=== PATIENT | male | born 1990 | race African-American/Black ===

== ENCOUNTER 2018-05-17 18:46 | Emergency (ER) | payer OTHER ==
[~2018-05-17] VITALS: Ht 185.4 cm; Wt 113.9 kg
[2018-05-17 19:00] VITALS: BP 147/188
[2018-05-17 19:17] LABS: BILIRUBIN,URINE NEGATIVE (NEG); CLARITY,URINE CLEAR; COLOR,URINE YELLOW; NITRITE,URINE NEGATIVE (NEG); PROTEIN,URINE NEGATIVE (NEG-TRACE)
[2018-05-17 19:22] LABS: BACTERIA,URINE 0 /HPF (0-FEW); SQUAMOUS EPITHELIAL CELL,UR OCC /LPF; WBC,URINE OCC /HPF (0-4)
[2018-05-17] MEDS ORDERED: cefTRIAXone IM 250 MG VIAL IM ONE (19:45)
[2018-05-17] MEDS ORDERED: AZITHROMYCIN 250 MG TABLET. PO ONE (19:45)
[2018-05-17] MEDS ORDERED: KETOROLAC 30 MG/ML VIAL. IM ONE (19:45)
--- NOTE | 2018-05-17 19:47 | PHYS DOC ---
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 He describes the pain as constant, sharp, localized, worse with movement. Patient denies dysuria, hematuria, radiation to the back. Patient reports the pain started today after intercourse with his partner. Reports was having "rough sex" at that time. He reports using protection and his partner is not experiencing any symptoms. He reports that he has one female partner. He has not noticed any redness or swelling. He has not taken anything for the pain. He reports the pain as a 9 out of 10. Review of Systems Review of Systems Constitutional: Denies fever or chills [] Eyes: Denies change in visual acuity, redness, or eye pain [] HENT: Denies nasal congestion or sore throat [] Respiratory: Denies cough or shortness of breath [] Cardiovascular: Denies chest pain or palpitations [] GI: Denies abdominal pain, nausea, vomiting, or diarrhea [] : Denies dysuria, hematuria, reports left-sided testicular pain [] Musculoskeletal: Denies back pain or joint pain [] Integument: Denies rash or skin lesions [] Neurologic: Denies headache, focal weakness or sensory changes [] Complete systems were reviewed and found to be within normal limits, except as documented in this note. Current Medications Current Medications Current Medications Medications (Trade) Dose Ordered Sig/[facility] Start Time Stop Time Status Last Admin Dose Admin Azithromycin (Zithromax) 1,000 mg 1X ONCE 05/17/18 19:45 05/17/18 19:46 DC 05/17/18 20:13 1,000 MG Ceftriaxone Sodium (Rocephin Im) 250 mg 1X ONCE 05/17/18 19:45 05/17/18 19:46 DC 05/17/18 20:12 250 MG Ketorolac Tromethamine (Toradol 30mg Vial) 30 mg 1X ONCE 05/17/18 19:45 05/17/18 19:46 DC 05/17/18 20:12 30 MG Allergies Allergies Allergies Coded Allergies Type Severity Reaction Last Updated Verified No Known Drug Allergies 05/17/18 No Physical Exam Physical Exam Constitutional: Well developed, well nourished, no acute distress, non-toxic appearance. [] HENT: Normocephalic, atraumatic, nose normal. [] Eyes: Conjunctiva normal, no discharge. [] Neck: Normal range of motion, no tenderness. [] Cardiovascular: Heart rate regular rhythm, no murmur. [] Lungs & Thorax: Bilateral breath sounds clear to auscultation. [] Abdomen: Soft, no tenderness. [] Skin: Warm, dry, no erythema, no rash. [] Back: No tenderness, no CVA tenderness. [] Extremities: No tenderness, no edema. [] : Testicles symmetric, nontender, cremasteric present bilateral, circumscribed , nonerythematous, nonedematous Neurologic: Alert and oriented X 3, no focal deficits noted. [] Psychologic: Affect normal, judgement normal, mood normal. [] Current Patient Data Vital Signs Vital Signs Date Time Temp Pulse Resp B/P (MAP) Pulse Ox O2 Delivery O2 Flow Rate FiO2 05/17/18 19:00 98.6 65 18 147/188 (174) 98 Room Air 98.6 Lab Values Laboratory Tests Test 05/17/18 19:00 Urine Collection Type Unknown Urine Color Yellow Urine Clarity Clear Urine pH 7.0 Urine Specific [place] >=1.030 Urine Protein Negative mg/dL (NEG-TRACE) Urine Glucose (UA) Negative mg/dL (NEG) Urine Ketones (Stick) Negative mg/dL (NEG) Urine Blood Negative (NEG) Urine Nitrite Negative (NEG) Urine Bilirubin Negative (NEG) Urine Urobilinogen Dipstick 1.0 mg/dL (0.2 mg/dL) Urine Leukocyte Esterase Negative (NEG) Urine RBC 1-2 /HPF (0-2) Urine WBC Occ /HPF (0-4) Urine Squamous Epithelial Cells Occ /LPF Urine Bacteria 0 /HPF (0-FEW) Urine Mucus Marked /LPF EKG EKG [] Radiology/Procedures Radiology/Procedures [] Course & Med Decision Making Course & Med Decision Making Pertinent Labs and Imaging studies reviewed. (See chart for details) Patient is a 27-year-old male is presenting with a week and a half of left- sided testicular pain. Physical exam negative for swelling, erythema, mildly tender to palpation on the left side. Patient is monogamous and reports using protection. Urinalysis within normal limits. GC culture initiated. Patient offered prophylactic antibiotic coverage for gonorrhea and chlamydia, patient opted to receive this. Ultrasound with findings consistent for epididymitis. Pain addressed. Will cover with additional antibiotics, however, may also be trauma induced as patient reports symptoms started after "rough sex". Patient stable for discharge with outpatient follow-up with PCP. Discussed findings and plan with patient, who acknowledges understanding and agreement. Dragon Disclaimer Dragon Disclaimer This electronic medical record was generated, in whole or in part, using a voice recognition dictation system. Departure Departure Impression: Primary Impression: Acute epididymitis Disposition: HOME, SELF-CARE Condition: STABLE Patient Instructions: Epididymitis Scripts Levofloxacin (LEVAQUIN) 500 Mg Tablet 1 TAB PO DAILY, #10 TAB Prov: GAB PATRICK DO 05/17/18 GAB PATRICK DO May 17, 2018 19:47
--- NOTE | 2018-05-17 20:37 | RAD ---
Testicular ultrasound HISTORY: Left testicular pain Sonographic examination was performed of the scrotal contents and testes multiple static images were obtained. The testes appear normal with normal echotexture and blood flow. The right testis measures 4.4 x 2.7 m left testis measures 2.9 x 2.2 x 3.2 cm. There is a small epididymal cyst the left with small left hydrocele and enlarged left epididymal tail. IMPRESSION: Probable epididymitis on the left. Normal testes with normal testicular blood flow. Electronically signed by: Addison Vivas III, MD (05/17/2018 8:33 PM) [id number]
[2018-05-17] MEDS ORDERED: LEVO500T59 PO (20:44)
== END 2018-05-17 20:50 | disposition home or self-care (01) ==
LOC: ER 18:46
DX: N45.1 Epididymitis (principal)
CPT/HCPCS: 76870; 81001; 87491; 87591; 96372; 99284; J0696; J1885; Q0144